=== PATIENT | male | born 1995 | race Caucasian/White ===

== ENCOUNTER 2021-08-18 08:00 | Outpatient (CLI) | payer OTHER | END 2021-08-18 23:59 | LOC: LAB.N 08:00 | PROVIDERS: ATTEND Family Medicine | DX: L02.612 Cutaneous abscess of left foot (principal) | CPT/HCPCS: 87070; 87205 ==

== ENCOUNTER 2021-08-20 12:48 | Outpatient (CLI) | payer OTHER ==
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
== END 2021-08-20 23:59 | disposition home or self-care (01) ==
LOC: DI.N 12:48
PROVIDERS: ATTEND Family Medicine
DX: L02.612 Cutaneous abscess of left foot (principal)

== ENCOUNTER 2021-12-03 08:24 | Emergency (ER) | payer OTHER ==
[2021-12-03 10:56] VITALS: BP 125/77
--- NOTE | 2021-12-03 11:11 | XRAY Report ---
PROCEDURE: Hand 3 View LT INDICATIONS: L MCP joint puncture reduced ROM TECHNIQUE: 3 views of the hand(s) acquired. COMPARISON: None FINDINGS: Bones: No fractures or dislocations. No suspicious bony lesions. Soft tissues: No suspicious soft tissue calcifications. IMPRESSION: Unremarkable left hand radiographs. No radiopaque foreign body. Reviewed by: Shaggy Ramirez MD on 12/03/2021 10:10 AM [facility] Approved by: Shaggy Ramirez MD on 12/03/2021 10:10 AM [facility] Station ID: [id number]
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
== END 2021-12-03 11:25 | disposition home or self-care (01) ==
LOC: ED 08:24
DX: S61.231A Puncture wound without foreign body of left index finger without damage to nail, initial encounter (principal); W26.0XXA Contact with knife, initial encounter
CPT/HCPCS: 99282; 99283